=== PATIENT | female | born 1990 | race Caucasian/White ===

== ENCOUNTER 2021-03-05 08:26 | Outpatient (REF) | payer BC, SELFPAY ==
[2021-03-09 17:22] LABS: HPV mRNA E6/E7 rflx Not Detected (Not Detected)
== END 2021-03-05 08:27 | disposition home or self-care (01) ==
LOC: HO.LAB 08:26
PROVIDERS: PCP Family Medicine; Visit Provider Advanced Practice Midwife
DX: Z01.411 Encounter for gynecological examination (general) (routine) with abnormal findings (principal); Z11.51 Encounter for screening for human papillomavirus (HPV); Z86.19 Personal history of other infectious and parasitic diseases
CPT/HCPCS: 87624; 88142